=== PATIENT | male | born 1950 | race Caucasian/White ===

== ENCOUNTER 2018-10-02 04:07 | Emergency (ER) | payer MEDICARE ==
[2018-10-02] MEDS ORDERED: ALBUTEROL (0.5% CONCENTRATED) 2.5 MG/0.5 ML VIAL.NEB INH ONE ×2 (04:14→04:16)
[2018-10-02] MEDS ORDERED: IPRATROPIUM/ALBUTEROL (0.5MG/3MG) NEB INH ONE (04:18)
--- NOTE | 2018-10-02 04:23 | Emergency Department Record ---
History of Present Illness - General Chief complaint: ENT Stated complaint: OBJECT IN EAR Time Seen by Provider: 10/02/18 04:17 Source: Patient Mode of Arrival: Ambulatory Limitations: No limitations - History of Present Illness Initial comments: 68 yo male with a history of oxygen dependent COPD presents to ED for evaluation of a foreign body within the left ear. Patient reports the object is likely the plastic/rubber tip from a wax remover that has been in the canal for approximately 20 hours. Patient reports pain from the object being in the ear, also complains of mild SOB due to his COPD. Patient denies fevers, chills, or recent illness. MD complaint: Ear pain Onset/Timin -: Hour(s) Location: L ear Severity: Moderate Quality: Aching Consistency: Constant Improves with: None Worsens with: None - Related Data Home Medications Medication Instructions Recorded Confirmed Last Taken Albuterol Sulfate [Proventil Hfa] 1 - 2 puff INH .EVERY 4-6 HOURS PRN 10/02/18 10/02/18 Unknown Aspirin [Ecotrin] 81 mg PO DAILY 10/02/18 10/02/18 Unknown Budesonide/Formoterol Fumarate 2 puff IH BID 10/02/18 10/02/18 Unknown [Symbicort 80-4.5 Mcg Inhaler] Fenofibrate Nanocrystallized 48 mg PO DAILY 10/02/18 10/02/18 Unknown [Fenofibrate] Nutrit Supp/Inulin/Fos/Fiber 1,500 ml PO DAILY 10/02/18 10/02/18 Unknown [Fibersource Hn Liquid] Simvastatin 10 mg PO DAILY 10/02/18 10/02/18 Unknown Tiotropium Forbes [Spiriva] 18 mcg IH DAILY 10/02/18 10/02/18 Unknown Allergies Allergy/AdvReac Type Severity Reaction Status Date / Time No Known Drug Allergies Allergy Verified 10/02/18 04:40 Review of Systems Constitutional: Denies: Chills, Fever, Malaise, Night sweats Eyes: Denies: Eye discharge, Eye pain ENT: Reports: Ear pain. Denies: Congestion, Epistaxis Respiratory: Reports: Dyspnea, Wheezes. Denies: Cough Cardiovascular: Denies: Chest pain, Edema, Palpitations Endocrine: Denies: Fatigue, Heat or cold intolerance Gastrointestinal: Denies: Abdominal pain, Nausea, Vomiting Genitourinary: Denies: Incontinence, Retention Musculoskeletal: Denies: Arthralgia, Back pain, Gout, Joint swelling Skin: Denies: Bruising, Change in color Neurological: Denies: Abnormal gait, Confusion, Headache, Seizure Psychiatric: Denies: Anxiety Hematological/Lymphatic: Denies: Anemia, Blood Clots Physical Exam - General General Appearance: Alert, Oriented x3, Cooperative, Mild distress Limitations: No limitations - Head Head exam: Atraumatic, Normocephalic, Normal inspection Head exam detail: negative: Abrasion, Contusion, Owens's sign, General tenderness, Hematoma, Laceration - Eye Eye exam: Normal appearance. negative: Conjunctival injection, Periorbital swelling, Periorbital tenderness, Scleral icterus - ENT Ear exam: External canal tenderness, Other (FB present within the external auditory canal of the left ear). negative: Auricular hematoma, Auricular trauma Nasal Exam: negative: Active bleeding, Discharge, Dried blood, Foreign body Mouth exam: negative: Drooling, Laceration, Muffled voice, Tongue elevation - Neck Neck exam: Normal inspection. negative: Meningismus, Tenderness - Respiratory Respiratory exam: Decreased breath sounds, Wheezes. negative: Rales, Respiratory distress - Cardiovascular Cardiovascular Exam: Regular rate, Normal rhythm, Normal heart sounds - GI/Abdominal GI/Abdominal exam: Soft. negative: Rebound, Rigid, Tenderness - Rectal Rectal exam: Deferred - exam: Deferred - Extremities Extremities exam: Normal inspection. negative: Pedal edema, Tenderness - Back Back exam: Denies: CVA tenderness (R), CVA tenderness (L) - Neurological Neurological exam: Alert, Normal gait, Oriented X3 - Psychiatric Psychiatric exam: Normal affect, Normal mood - Skin Skin exam: Normal color. negative: Abrasion Type of lesion: negative: abrasion Course Vital Signs 10/02/18 04:14 Temperature 98.3 F Pulse Rate [ 104 H Pulse Ox Probe] Respiratory 32 H Rate Blood Pressure 185/92 [Left Arm] Pulse Ox 90 L - Reevaluation(s) Reevaluation #1: 10/02/18 04:22 Plastic ear wax tip was removed from the left ear canal, mile erythema/irritation to the canal is presents, TM intact. Reevaluation #2: 10/02/18 04:48 Patient was reassessed following Duoneb, BS significantly improved. Repeat VS: 158/76, 94% 2L, RR 16, pulse 91. Patient appears stable for discharge at this time. Procedures - Foreign Body Removal Ear Location: Ear canal (L) Foreign Body Suspected: Plastic bead/other plastic Foreign Body Removed: Yes Foreign Body Removal Technique: Forceps Tympanic Membrane Intact: Yes Patient Tolerated Procedure: Good Complications: None Disposition Disposition: Discharge Clinical Impression: Foreign body in ear Qualifiers: Encounter type: initial encounter Laterality: left Qualified Code(s): T16.2XXA - Foreign body in left ear, initial encounter COPD (chronic obstructive pulmonary disease) Qualifiers: COPD type: unspecified COPD Qualified Code(s): J44.9 - Chronic obstructive pulmonary disease, unspecified Disposition: Home, Self-Care Condition: (2) Stable Instructions: Ear Foreign Body (ED) Additional Instructions: Return to ED if your symptoms worsen or if you have any concerns. Follow-up with your family doctor in 3-5 days as directed. Forms: Patient Portal Access Time of Disposition: 04:24 Quality - Quality Measures Quality Measures: N/A - Blood Pressure Screening Does Patient Have Any of the Following: Active Dx of HTN Blood Pressure Classification: Hypertensive Reading Systolic Measurement: 185 Diastolic Measurement: 92 Screening for High Blood Pressure: Patient Exclusion, Hx of HTN [G9744]
== END 2018-10-02 04:52 | disposition home or self-care (01) ==
LOC: ER 04:07
DX: T16.2XXA Foreign body in left ear, initial encounter (principal); R06.02 Shortness of breath; J44.9 Chronic obstructive pulmonary disease, unspecified; I10 Essential (primary) hypertension; Z99.81 Dependence on supplemental oxygen
CPT/HCPCS: 69200; 94640; 99283

== ENCOUNTER 2019-04-07 08:54 | Emergency (ER) | payer MEDICARE ==
[2019-04-07] MEDS ORDERED: 0.9 % SODIUM CHLORIDE 1000ML 1,000 ML IV ONE (08:56)
[2019-04-07] MEDS ORDERED: IPRATROPIUM/ALBUTEROL (0.5MG/3MG) NEB INH ONE (08:57)
[2019-04-07] MEDS ORDERED: METHYLPREDNISOLONE PF 125MG/VIAL IVP ONE (08:57)
[2019-04-07 09:16] LABS: HEMATOCRIT 44.9 % (42.0-52.0); HEMOGLOBIN 13.9 gm/dl (14.0-18.0); MEAN CELL VOLUME 101.1 fl (81-97); MEAN CORPUSCULAR HEMOGLOBIN 31.3 pg (27-33); MEAN PLATELET VOLUME 9.4 fl (7.4-10.4); PLATELET COUNT 331 K/uL (130-400); RED BLOOD COUNT 4.44 M/uL (4.40-5.70); RED CELL DISTRIBUTION WIDTH 14.2 % (11.5-14.5); WHITE BLOOD COUNT W/O DIFF 7.6 K/uL (4.2-12.2)
[2019-04-07 09:28] LABS: BLOOD UREA NITROGEN 18 mg/dL (8-23); CREATININE 1.1 mg/dL (0.7-1.2); EST GLOMERULAR FILTRATION RATE > 60 mL/min
[2019-04-07 09:31] LABS: GLUCOSE,RANDOM 109 mg/dL (74-109)
--- NOTE | 2019-04-07 10:08 | RADIOLOGY REPORT ---
EXAMINATION: Two View Chest Radiographs EXAM DATE: 04/07/2019 9:56 AM TECHNIQUE: Frontal and lateral views INDICATION: Cough, shortness of breath COMPARISON: No relevant comparison studies ENCOUNTER: Not applicable FINDINGS: Stigmata of COPD without appreciable airspace opacities. No appreciable pneumothorax. No sizable pleural effusions. Cardiopericardial contour is not enlarged unremarkable. IMPRESSION: No acute cardiopulmonary abnormality to the limits of technique. Dictated by: Rae Rosas MD on 04/07/2019 10:03 AM. .
[2019-04-07 10:32] LABS: INFLUENZA A NEGATIVE (NEGATIVE); INFLUENZA B NEGATIVE (NEGATIVE)
--- NOTE | 2019-04-07 10:44 | Emergency Department Record ---
History of Present Illness - General Chief Complaint: Difficulty Breathing Stated Complaint: URMILA Time Seen by Provider: 04/07/19 08:55 Source: Patient, RN notes reviewed Mode of Arrival: Ambulatory - History of Present Illness Initial Comments: patient states he is SOB and coughing up sputum which started 4 days ago. PMH of copd and on home oxygen at 2 liters per min. No chest pain. Primary Dr is Dr Medrano patient states he has been using albuterol and symbicort at home. still smoking home made cigarretes Onset/Timin -: Days(s) Severity: Moderate Consistency: Getting worse Improves With: Bronchodilators Worsens With: Coughing, Exertion Known History Of: COPD Associated Symptoms: Cough Treatments Prior to Arrival: Bronchodilator, Oxygen - Related Data Home Oxygen Therapy: Yes Home Oxygen Amount: 2 Liters Home Medications Medication Instructions Recorded Confirmed Last Taken Amlodipine Besylate [Norvasc] 5 mg PO DAILY 04/07/19 04/07/19 04/06/19 Guaifenesin [Mucinex] 600 mg PO ASDIR 04/07/19 04/07/19 04/06/19 Vitamin B Complex 1 each PO DAILY 04/07/19 04/07/19 04/06/19 Previous Rx's Medication Instructions Recorded Azithromycin 250 mg PO DAILY #6 tablet 04/07/19 Prednisone [Prednisone 10Mg] 10 mg PO ASDIR #30 tab 04/07/19 Promethazine HCl/Codeine 10 ml PO Q4H PRN #300 ml 04/07/19 [Phenergan W/Codeine] Allergies Allergy/AdvReac Type Severity Reaction Status Date / Time niacin AdvReac FLUSHING Verified 04/07/19 08:59 Travel Screening - Travel/Exposure Within Last 30 Days Have you traveled within the last 30 days?: No - Travel/Exposure Within Last Year Have you traveled outside the [place] in the last year?: No - Additonal Travel Details Have you been exposed to anyone with a communicable illness?: No - Travel Symptoms Symptom Screening: None Review of Systems Reviewed: No additional complaints except as noted below Constitutional: Reports: As per HPI. Denies: Chills, Fever, Malaise, Night s weats, Weakness, Weight change Eyes: Reports: As per HPI. Denies: Eye discharge, Eye pain, Photophobia, Vision change ENT: Reports: As per HPI, Congestion. Denies: Dental pain, Ear pain, Epistaxis, Hearing loss, Throat pain Respiratory: Reports: As per HPI, Cough, Dyspnea, Wheezes. Denies: Hemoptysis, Stridor Cardiovascular: Reports: As per HPI. Denies: Arrhythmia, Chest pain, Dyspnea on exertion, Edema, Murmurs, Orthopnea, Palpitations, Paroxysmal nocturnal dyspnea, Rheumatic Fever, Syncope Endocrine: Reports: As per HPI. Denies: Fatigue, Heat or cold intolerance, Polydipsia, Polyuria Gastrointestinal: Reports: As per HPI. Denies: Abdominal pain, Constipation, Diarrhea, Hematemesis, Hematochezia, Melena, Nausea, Vomiting Genitourinary: Reports: As per HPI. Denies: Dysuria, Frequency, Hematuria, Incontinence, Retention, Testicular pain, Testicular mass, Urgency Musculoskeletal: Reports: As per HPI. Denies: Arthralgia, Back pain, Gout, Joint swelling, Myalgia, Neck pain Skin: Reports: As per HPI. Denies: Bruising, Change in color, Change in hair/nails, Lesions, Pruritus, Rash Neurological: Reports: As per HPI. Denies: Abnormal gait, Confusion, Headache, Numbness, Paresthesias, Seizure, Tingling, Tremors, Vertigo, Weakness Psychiatric: Reports: As per HPI. Denies: Anxiety, Auditory hallucinations, Depression, Homicidal thoughts, Suicidal thoughts, Visual hallucinations Hematological/Lymphatic: Reports: As per HPI. Denies: Anemia, Blood Clots, Easy bleeding, Easy bruising, Swollen glands Past Medical History - SOCIAL HISTORY Smoking Status: Former smoker Alcohol Use: Occasional Drug Use: None - RESPIRATORY Hx Respiratory Disorders: Yes Hx COPD: Yes - CARDIOVASCULAR Hx Cardio Disorders: No - NEURO Hx Neuro Disorders: No - GI Hx GI Disorders: Yes Hx of Polyps: Yes - Hx Genitourinary Disorders: No - ENDOCRINE Hx Endocrine Disorders: No - MUSCULOSKELETAL Hx Musculoskeletal Disorders: Yes - PSYCH Hx Psych Problems: No - HEMATOLOGY/ONCOLOGY Hx Hematology/Oncology Disorders: No Family Medical History Any Significant Family History?: No Family Hx Comment (NOT TO BE USED IN PLACE OF ITEMS BELOW): denies Physical Exam - General General Appearance: Alert, Oriented x3, Cooperative, No acute distress - Head Head exam: Normal inspection - Eye Eye exam: Normal appearance, PERRL Pupils: Normal accommodation - ENT ENT exam: Normal exam, Mucous membranes moist, Normal external ear exam, Normal orophraynx, TM's normal bilaterally Ear exam: Normal external inspection. negative: External canal tenderness Nasal Exam: Normal inspection. negative: Discharge, Sinus tenderness Mouth exam: Normal external inspection, Tongue normal Teeth exam: Normal inspection. negative: Dental caries Throat exam: Normal inspection. negative: Tonsillar erythema, Tonsillar exudate - Neck Neck exam: Normal inspection, Full ROM. negative: Tenderness - Respiratory Respiratory exam: Respiratory distress, Wheezes - Cardiovascular Cardiovascular Exam: Regular rate, Normal rhythm, Normal heart sounds - GI/Abdominal GI/Abdominal exam: Soft, Normal bowel sounds. negative: Tenderness - Rectal Rectal exam: Deferred - exam: Deferred - Extremities Extremities exam: Normal inspection, Full ROM, Normal capillary refill. negative: Tenderness - Back Back exam: Reports: Normal inspection, Full ROM. Denies: Muscle spasm, Rash noted, Tenderness - Neurological Neurological exam: Alert, Normal gait, Oriented X3, Reflexes normal - Psychiatric Psychiatric exam: Normal affect, Normal mood - Skin Skin exam: Dry, Intact, Normal color, Warm Course Vital Signs 04/07/19 04/07/19 09:06 09:10 Temperature 98.4 F Pulse Rate 89 87 Respiratory 20 16 Rate Blood Pressure 137/88 Pulse Ox 95 - Reevaluation(s) Reevaluation #1: discussed admission and outpatient and he wants to try outpatient treatment 04/07/19 11:28 Medical Decision Making - Data Complexity MDM Data: Labs Ordered and/or Reviewed, X-Ray Ordered and/or Reviewed (No acute findings), EKG Ordered and/or Reviewed (NSR, no acute changes) - Lab Data Result diagrams: 04/07/19 09:00 04/07/19 09:00 Lab Results 04/07/19 04/07/19 04/07/19 Range/Units 09:00 09:00 09:00 WBC 7.6 (4.2-12.2) K/uL RBC 4.44 (4.40-5.70) M/uL Hgb 13.9 L (14.0-18.0) gm/dl Hct 44.9 (42.0-52.0) % MCV 101.1 H (81-97) fl MCH 31.3 (27-33) pg MCHC 31.0 L (32-36) g/dl RDW 14.2 (11.5-14.5) % Plt Count 331 (130-400) K/uL MPV 9.4 (7.4-10.4) fl Neutrophils % 58.0 (47-80) % Eosinophils % Not Reportable Basophils % Not Reportable Absolute Neutrophils Not Reportable Lymphocytes 27.0 (16-45) % Monocytes 4.0 (0-9) % Eosinophil Count 11.0 H (0-6) % APTT 26.6 (24.5-39.1) SECONDS Sodium 143 (136-145) mmol/L Potassium 4.2 (3.4-4.5) mmol/L Chloride 100 (98-107) mmol/L Carbon Dioxide 32.0 H (22-29) mmol/L Anion Gap 11.0 (7-16) BUN 18 (8-23) mg/dL Creatinine 1.1 (0.7-1.2) mg/dL Estimated GFR > 60 mL/min Random Glucose 109 (74-109) mg/dL Calcium 10.3 H (8.8-10.2) mg/dL Troponin T < 0.010 (0-0.010) ng/mL Influenza Type A Ag (NEGATIVE) Influenza Type B Ag (NEGATIVE) 04/07/19 Range/Units 09:40 WBC (4.2-12.2) K/uL RBC (4.40-5.70) M/uL Hgb (14.0-18.0) gm/dl Hct (42.0-52.0) % MCV (81-97) fl MCH (27-33) pg MCHC (32-36) g/dl RDW (11.5-14.5) % Plt Count (130-400) K/uL MPV (7.4-10.4) fl Neutrophils % (47-80) % Eosinophils % Basophils % Absolute Neutrophils Lymphocytes (16-45) % Monocytes (0-9) % Eosinophil Count (0-6) % APTT (24.5-39.1) SECONDS Sodium (136-145) mmol/L Potassium (3.4-4.5) mmol/L Chloride (98-107) mmol/L Carbon Dioxide (22-29) mmol/L Anion Gap (7-16) BUN (8-23) mg/dL Creatinine (0.7-1.2) mg/dL Estimated GFR mL/min Random Glucose (74-109) mg/dL Calcium (8.8-10.2) mg/dL Troponin T (0-0.010) ng/mL Influenza Type A Ag Negative (NEGATIVE) Influenza Type B Ag Negative (NEGATIVE) Disposition Clinical Impression: COPD (chronic obstructive pulmonary disease) with acute bronchitis, On home O2 Disposition: Home, Self-Care Condition: (1) Good Instructions: COPD (Chronic Obstructive Pulmonary Disease) (ED), Acute Bronchitis (ED) Additional Instructions: follow up with Dr. Medrano in 2 to 5 days drink fluids phenergan with codiene cough syrup 10 ml ever 4 hours Prescriptions: Azithromycin 250 mg PO DAILY #6 tablet Promethazine HCl/Codeine [Phenergan W/Codeine] 10 ml PO Q4H PRN #300 ml PRN Reason: Cough Prednisone [Prednisone 10Mg] 10 mg PO ASDIR #30 tab Forms: Patient Portal Access Time of Disposition: 11:36 Quality - Quality Measures Quality Measures: N/A - Blood Pressure Screening Does Patient Have Any of the Following: No Blood Pressure Classification: Pre-Hypertensive BP Reading Systolic Measurement: 137 Diastolic Measurement: 88 Screening for High Blood Pressure: < Pre-Hypertensive BP, F/U Documented > [G8 950] Pre-Hypertensive Follow-up Interventions: Referral to alternative/primary care provider.
[2019-04-07] MEDS ORDERED: CEFTRIAXONE SODIUM 1 GM in 0.9 % SODIUM CHLORIDE 100ML 100 ML IVPB ONE (10:56)
[2019-04-07] MEDS ORDERED: AZITHROMYCIN 500 MG TABLET PO ONE (11:06)
[2019-04-08] MEDS ORDERED: AZITHROMYCIN 500 MG TABLET PO SCH (10:00)
== END 2019-04-07 12:03 | disposition home or self-care (01) ==
LOC: ER 08:54
DX: J44.1 Chronic obstructive pulmonary disease with (acute) exacerbation (principal); F17.210 Nicotine dependence, cigarettes, uncomplicated
CPT/HCPCS: 71046; 80048; 84484; 85027; 85730; 87400; 93005; 93010; 94640; 96365; 96375; 99284; J2930

== ENCOUNTER 2019-05-14 10:17 | Emergency (ER) | payer MEDICARE ==
[2019-05-14] MEDS ORDERED: METHYLPREDNISOLONE PF 125MG/VIAL IVP ONE (10:24)
[2019-05-14] MEDS ORDERED: IPRATROPIUM/ALBUTEROL (0.5MG/3MG) NEB INH ONE (10:24)
[2019-05-14 11:01] LABS: ABSOLUTE NEUTROPHIL COUNT 4.48; BASO % 0.6 % (0-6); EOS % 9.1 % (0-6); GRAN % 55.2 % (47-80); HEMATOCRIT 41.6 % (42.0-52.0); LYMPH % 25.1 % (16-45); MEAN CELL VOLUME 99.8 fl (81-97); MEAN CORPUSCULAR HGB CONC 31.3 g/dl (32-36); MEAN PLATELET VOLUME 9.8 fl (7.4-10.4); PLATELET COUNT 332 K/uL (130-400); RED BLOOD COUNT 4.17 M/uL (4.40-5.70); RED CELL DISTRIBUTION WIDTH 14.6 % (11.5-14.5); WHITE BLOOD COUNT W/O DIFF 8.1 K/uL (4.2-12.2)
[2019-05-14 11:02] LABS: MEAN CORPUSCULAR HEMOGLOBIN 31.1 pg (27-33)
--- NOTE | 2019-05-14 11:04 | Emergency Department Record ---
History of Present Illness - General Chief Complaint: Shortness of breath Stated Complaint: SHORT OF BREATH Time Seen by Provider: 05/14/19 10:21 Source: Patient Mode of Arrival: Ambulatory Limitations: No limitations - History of Present Illness Initial Comments: pt has had increasing sob over the last day. his oxygen sats were down to 84. he is on home O2 at 2 ltrs Complaint: Cough, Shortness of breath Onset/Timin -: Days(s) Consistency: Constant Improves With: Nothing Worsens With: Nothing Known History Of: COPD, Other Associated Symptoms: Cough Treatments Prior to Arrival: Bronchodilator, Oxygen - Related Data Home Oxygen Therapy: Yes Home Oxygen Amount: 2 Liters Home Medications Medication Instructions Recorded Confirmed Last Taken Albuterol Sulfate 2.5 mg IH TID 05/14/19 05/14/19 05/13/19 Cholecalciferol (Vitamin D3) 2,000 unit PO DAILY 05/14/19 05/14/19 05/13/19 [Vitamin D3] Montelukast Sodium [Singulair] 10 mg PO DAILY 05/14/19 05/14/19 05/13/19 Previous Rx's Medication Instructions Recorded Promethazine HCl/Codeine 10 ml PO Q4H PRN #300 ml 04/07/19 [Phenergan W/Codeine] Prednisone [Prednisone 20Mg] 20 mg PO Q12HR #8 tab 05/14/19 Allergies Allergy/AdvReac Type Severity Reaction Status Date / Time niacin AdvReac FLUSHING Verified 05/14/19 10:28 Travel Screening - Travel/Exposure Within Last 30 Days Have you traveled within the last 30 days?: No Review of Systems Reviewed: No additional complaints except as noted below Constitutional: Reports: As per HPI. Denies: Chills, Fever, Malaise, Night sweats, Weakness, Weight change Eyes: Reports: As per HPI. Denies: Eye discharge, Eye pain, Photophobia, Vision change ENT: Reports: As per HPI. Denies: Congestion, Dental pain, Ear pain, Epistaxis, Hearing loss, Throat pain Respiratory: Reports: As per HPI, Cough. Denies: Dyspnea, Hemoptysis, Stridor, Wheezes Cardiovascular: Reports: As per HPI. Denies: Arrhythmia, Chest pain, Dyspnea on exertion, Edema, Murmurs, Orthopnea, Palpitations, Paroxysmal nocturnal dyspnea, Rheumatic Fever, Syncope Endocrine: Reports: As per HPI. Denies: Fatigue, Heat or cold intolerance, Polydipsia, Polyuria Gastrointestinal: Reports: As per HPI. Denies: Abdominal pain, Constipation, Diarrhea, Hematemesis, Hematochezia, Melena, Nausea, Vomiting Genitourinary: Reports: As per HPI. Denies: Dysuria, Frequency, Hematuria, Incontinence, Retention, Testicular pain, Testicular mass, Urgency Musculoskeletal: Reports: As per HPI. Denies: Arthralgia, Back pain, Gout, Joint swelling, Myalgia, Neck pain Skin: Reports: As per HPI. Denies: Bruising, Change in color, Change in hair/nails, Lesions, Pruritus, Rash Neurological: Reports: As per HPI. Denies: Abnormal gait, Confusion, Headache, Numbness, Paresthesias, Seizure, Tingling, Tremors, Vertigo, Weakness Psychiatric: Reports: As per HPI. Denies: Anxiety, Auditory hallucinations, Depression, Homicidal thoughts, Suicidal thoughts, Visual hallucinations Hematological/Lymphatic: Reports: As per HPI. Denies: Anemia, Blood Clots, Easy bleeding, Easy bruising, Swollen glands Past Medical History - SOCIAL HISTORY Smoking Status: Former smoker Alcohol Use: None Drug Use: None - RESPIRATORY Hx Respiratory Disorders: Yes Hx COPD: Yes Comment:: emphysema - CARDIOVASCULAR Hx Cardio Disorders: Yes Comment:: aortic aneurysm - NEURO Hx Neuro Disorders: No - GI Hx GI Disorders: Yes Hx of Polyps: Yes - Hx Genitourinary Disorders: No - ENDOCRINE Hx Endocrine Disorders: No - MUSCULOSKELETAL Hx Musculoskeletal Disorders: Yes - PSYCH Hx Psych Problems: No - HEMATOLOGY/ONCOLOGY Hx Hematology/Oncology Disorders: No Family Medical History Any Significant Family History?: No Family Hx Comment (NOT TO BE USED IN PLACE OF ITEMS BELOW): denies Physical Exam - General General Appearance: Alert, Oriented x3, Cooperative, Mild distress - Head Head exam: Normal inspection - Eye Eye exam: Normal appearance, PERRL, EOMI Pupils: Normal accommodation - ENT ENT exam: Normal exam, Mucous membranes moist, Normal external ear exam, Normal orophraynx Ear exam: Normal external inspection. negative: External canal tenderness Nasal Exam: Normal inspection. negative: Discharge, Sinus tenderness Mouth exam: Normal external inspection, Tongue normal Teeth exam: Normal inspection. negative: Dental caries Throat exam: Normal inspection. negative: Tonsillar erythema, Tonsillar exudate - Neck Neck exam: Normal inspection, Full ROM. negative: Tenderness - Respiratory Respiratory exam: Accessory muscle use, Decreased breath sounds, Respiratory distress, Wheezes - Cardiovascular Cardiovascular Exam: Regular rate, Normal rhythm, Normal heart sounds - GI/Abdominal GI/Abdominal exam: Soft, Normal bowel sounds. negative: Tenderness - Rectal Rectal exam: Deferred - exam: Deferred - Extremities Extremities exam: Normal inspection, Full ROM, Normal capillary refill. negative: Tenderness - Back Back exam: Reports: Normal inspection, Full ROM. Denies: Muscle spasm, Rash noted, Tenderness - Neurological Neurological exam: Alert, CN II-XII intact, Normal gait, Oriented X3 - Psychiatric Psychiatric exam: Normal affect, Normal mood - Skin Skin exam: Dry, Intact, Normal color, Warm Course Vital Signs 05/14/19 05/14/19 05/14/19 10:20 10:26 10:29 Temperature 98.8 F Pulse Rate 100 H 95 H Respiratory 22 18 Rate Blood Pressure 136/88 Pulse Ox 84 L 97 98 - Reevaluation(s) Reevaluation #1: 05/14/19 12:26 pt feels better Medical Decision Making - Lab Data Result diagrams: 05/14/19 10:25 05/14/19 10:25 Disposition Disposition: Discharge Clinical Impression: COPD with acute exacerbation Disposition: Home, Self-Care Condition: (1) Good Instructions: COPD (Chronic Obstructive Pulmonary Disease) (ED) Additional Instructions: followup with family doctor this week. return sooner if worse. Prescriptions: Prednisone [Prednisone 20Mg] 20 mg PO Q12HR #8 tab Forms: Patient Portal Access Quality - Quality Measures Quality Measures: N/A - Blood Pressure Screening Does Patient Have Any of the Following: No Blood Pressure Classification: Pre-Hypertensive BP Reading Systolic Measurement: 136 Diastolic Measurement: 88 Screening for High Blood Pressure: < Pre-Hypertensive BP, F/U Documented > [G8950] Pre-Hypertensive Follow-up Interventions: Follow-up with rescreen every year.
[2019-05-14 11:10] LABS: BLOOD UREA NITROGEN 17 mg/dL (8-23); CREATININE 1.2 mg/dL (0.7-1.2); EST GLOMERULAR FILTRATION RATE > 60 mL/min
[2019-05-14 11:12] LABS: GLUCOSE,RANDOM 104 mg/dL (74-109)
--- NOTE | 2019-05-14 12:13 | RADIOLOGY REPORT ---
EXAMINATION: Two View Chest Radiographs EXAM DATE: 05/14/2019 11:30 AM TECHNIQUE: Frontal and lateral views INDICATION: sob COMPARISON: 04/07/2019 ENCOUNTER: Not applicable FINDINGS: Hyperinflation Peripheral left midlung scar No pneumothorax or pleural effusion demonstrated Normal heart size and pulmonary vascularity IMPRESSION: COPD, no acute infiltrate demonstrated Dictated by: Solomon Celeste MD on 05/14/2019 12:11 PM. .
[2019-05-14] MEDS ORDERED: ALBUTEROL SULFATE (0.083%) 2.5 MG/3 ML NEB INH ONE (12:27)
== END 2019-05-14 12:57 | disposition home or self-care (01) ==
LOC: ER 10:17
DX: J44.1 Chronic obstructive pulmonary disease with (acute) exacerbation (principal); Z87.891 Personal history of nicotine dependence; Z99.81 Dependence on supplemental oxygen
CPT/HCPCS: 71046; 80048; 85025; 94640; 96374; 99284; J2930; J7613

== ENCOUNTER 2019-07-02 05:40 | Emergency (ER) | payer MEDICARE ==
[2019-07-02] MEDS ORDERED: ASPIRIN 81 MG CHEWABLE TABLET PO ONE (05:41)
[2019-07-02] MEDS ORDERED: IPRATROPIUM/ALBUTEROL (0.5MG/3MG) NEB INH ONE (05:41)
[2019-07-02] MEDS ORDERED: METHYLPREDNISOLONE PF 125MG/VIAL IVP ONE (05:41)
--- NOTE | 2019-07-02 05:46 | Emergency Department Record ---
History of Present Illness - General Chief Complaint: Shortness of breath Stated Complaint: URMILA Time Seen by Provider: 07/02/19 05:41 Source: Patient Mode of Arrival: Wheelchair Limitations: No limitations - History of Present Illness Initial Comments: 69 yo male presents to ED for evaluation of shortness of breath symptoms that began yesterday. Patient reports a history of oxygen-dependent COPD at 2 L NC at his baseline. Patient also reports mild-moderate left-sided chest pain symptoms. Patient denies fevers, chills, or productive cough symptoms. MD Complaint: Shortness of breath Onset/Timin -: Hour(s) Severity: Moderate Consistency: Constant Improves With: Nothing Worsens With: Nothing Known History Of: COPD Associated Symptoms: Chest pain Treatments Prior to Arrival: Bronchodilator - Related Data Home Oxygen Therapy: Yes Home Oxygen Amount: 2 Liters Previous Rx's Medication Instructions Recorded Prednisone [Prednisone 20Mg] 20 mg PO Q12HR #8 tab 05/14/19 Prednisone [Prednisone 20Mg] 20 mg PO TID #12 tab 07/02/19 Allergies Allergy/AdvReac Type Severity Reaction Status Date / Time niacin AdvReac FLUSHING Verified 07/02/19 05:42 Travel/Exposure Screening - Travel/Exposure Within Last 30 Days Have you traveled within the last 30 days?: No - Travel/Exposure Within Last Year Have you traveled outside the [place] in the last year?: No - Additonal Travel/Exposure Details Have you been exposed to anyone with a communicable illness?: No - Travel Symptoms Symptom Screening: None Review of Systems Constitutional: Denies: Chills, Fever, Malaise, Night sweats Eyes: Denies: Eye discharge, Eye pain ENT: Denies: Congestion, Ear pain, Epistaxis Respiratory: Reports: Dyspnea, Wheezes. Denies: Cough Cardiovascular: Reports: Chest pain. Denies: Edema Endocrine: Denies: Fatigue, Heat or cold intolerance Gastrointestinal: Denies: Abdominal pain, Nausea, Vomiting Genitourinary: Denies: Incontinence, Retention Musculoskeletal: Denies: Arthralgia, Back pain Skin: Denies: Bruising, Change in color Neurological: Denies: Abnormal gait, Confusion, Headache, Tingling, Tremors Psychiatric: Denies: Anxiety Hematological/Lymphatic: Denies: Anemia, Blood Clots Past Medical History - SOCIAL HISTORY Smoking Status: Former smoker Drug Use: None - RESPIRATORY Hx Respiratory Disorders: Yes Hx COPD: Yes Comment:: emphysema - CARDIOVASCULAR Hx Cardio Disorders: Yes Comment:: aortic aneurysm - NEURO Hx Neuro Disorders: No - GI Hx GI Disorders: Yes Hx of Polyps: Yes - Hx Genitourinary Disorders: No - ENDOCRINE Hx Endocrine Disorders: No - MUSCULOSKELETAL Hx Musculoskeletal Disorders: Yes - PSYCH Hx Psych Problems: No - HEMATOLOGY/ONCOLOGY Hx Hematology/Oncology Disorders: No Family Medical History Family Hx Comment (NOT TO BE USED IN PLACE OF ITEMS BELOW): denies Physical Exam - General General Appearance: Alert, Oriented x3, Cooperative, Moderate distress Limitations: No limitations - Head Head exam: Atraumatic, Normocephalic, Normal inspection Head exam detail: negative: Abrasion, Contusion, Owens's sign, General tenderness, Hematoma, Laceration - Eye Eye exam: Normal appearance. negative: Conjunctival injection, Periorbital swelling, Periorbital tenderness, Scleral icterus - ENT Ear exam: negative: Auricular hematoma, Auricular trauma Nasal Exam: negative: Active bleeding, Discharge, Dried blood, Foreign body Mouth exam: negative: Drooling, Laceration, Muffled voice, Tongue elevation - Neck Neck exam: Normal inspection. negative: Meningismus, Tenderness - Respiratory Respiratory exam: Decreased breath sounds, Prolonged expiratory, Respiratory distress. negative: Rhonchi, Stridor, Wheezes - Cardiovascular Cardiovascular Exam: Regular rate, Normal rhythm, Normal heart sounds - GI/Abdominal GI/Abdominal exam: Soft. negative: Distended, Rebound, Rigid, Tenderness - Rectal Rectal exam: Deferred - exam: Deferred - Extremities Extremities exam: Normal inspection. negative: Pedal edema, Tenderness - Back Back exam: Denies: CVA tenderness (R), CVA tenderness (L) - Neurological Neurological exam: Alert, Oriented X3 - Psychiatric Psychiatric exam: Normal affect, Normal mood - Skin Skin exam: Normal color. negative: Abrasion Type of lesion: negative: abrasion Course - Reevaluation(s) Reevaluation #1: 07/02/19 05:51 EKG: Sinus tachycardia 102 Normal axis, normal intervals No acute ST-T wave changes Reevaluation #2: 07/02/19 06:51 Laboratory studies were reviewed and appear grossly unremarkable for an acute process. Patient was reassessed and reports that he is feeling much improved. CXR pending at this time. Reevaluation #3: 07/02/19 07:25 CXR: COPD No acute process Patient updated on all results, reports that he is feeling much improved. Discussed admission for observation and further assessment for his chest disc omfort/COPD, patient is declining further evaluation stating that he is feeling much improved and "has to go as I have things to do today". Following discussion with the patient regarding admission, patient reports that they want to leave AMA at this time. Risks of , permanent impairment, or w orsening of his current condition were discussed as well as the benefit of admission for further cardiac evaluation of his presenting symptoms. Patient verbalizes understanding of all risks and benefits, desires to leave AMA despite these risks. Based on my examination, the patient is alert, oriented, and answers all questions appropriately. Patient appears to have the capacity to make rational decisions based on my examination. Patient was encouraged to return to the ED immediately if they change their mind about treatment and want to be re-evaluated. Medical Decision Making - Lab Data Result diagrams: 07/02/19 05:40 07/02/19 05:40 Disposition Disposition: Discharge Clinical Impression: COPD with acute exacerbation Disposition: Against Medical Advice Decision to Admit: Admit from ER Condition: (2) Stable Instructions: COPD (Chronic Obstructive Pulmonary Disease) (ED) Additional Instructions: Return to ED if your symptoms worsen or if you have any concerns. Prednisone as directed. Follow-up with your family doctor in 1-3 days as directed. Prescriptions: Prednisone [Prednisone 20Mg] 20 mg PO TID #12 tab Forms: Patient Portal Access Time of Disposition: 07:32 Quality - Quality Measures Quality Measures: N/A - Blood Pressure Screening Does Patient Have Any of the Following: No Blood Pressure Classification: Pre-Hypertensive BP Reading Systolic Measurement: 154 Diastolic Measurement: 82 Screening for High Blood Pressure: < Pre-Hypertensive BP, F/U Documented > [G8950] Pre-Hypertensive Follow-up Interventions: Referral to alternative/primary care provider.
[2019-07-02 06:10] LABS: BLOOD UREA NITROGEN 19 mg/dL (8-23); CREATININE 1.2 mg/dL (0.7-1.2); EST GLOMERULAR FILTRATION RATE > 60 mL/min
[2019-07-02 06:11] LABS: TOTAL PROTEIN 7.5 g/dL (6.6-8.7)
[2019-07-02 06:13] LABS: GLUCOSE,RANDOM 103 mg/dL (74-109)
[2019-07-02 06:14] LABS: ABSOLUTE NEUTROPHIL COUNT 7.56; HEMATOCRIT 43.3 % (42.0-52.0); HEMOGLOBIN 13.5 gm/dl (14.0-18.0); MEAN CELL VOLUME 101.9 fl (81-97); MEAN CORPUSCULAR HGB CONC 31.2 g/dl (32-36); MEAN PLATELET VOLUME 9.4 fl (7.4-10.4); PLATELET COUNT 297 K/uL (130-400); RED BLOOD COUNT 4.25 M/uL (4.40-5.70); RED CELL DISTRIBUTION WIDTH 15.5 % (11.5-14.5); WHITE BLOOD COUNT W/O DIFF 10.5 K/uL (4.2-12.2)
[2019-07-02 06:15] LABS: ALT/SGPT 15 U/L (<41); AST/SGOT 17 U/L (10.0-50.0)
[2019-07-02 06:16] LABS: ALB/GLOB RATIO 1.7 (1.1-1.8); ALBUMIN 4.7 g/dL (4.0-5.0); ALKALINE PHOSPHATASE 59 U/L (40-129)
[2019-07-02 06:24] LABS: MEAN CORPUSCULAR HEMOGLOBIN 31.7 pg (27-33)
[2019-07-02 06:40] LABS: BASO % 0.4 % (0-6); EOS % 1.5 % (0-6); GRAN % 72.1 % (47-80); LYMPH % 18.9 % (16-45); MONO % 7.1 % (0-9)
[2019-07-02 06:41] LABS: ANISOCYTOSIS 1+; PLATELET ESTIMATE NORMAL (NORMAL)
--- NOTE | 2019-07-02 07:11 | RADIOLOGY REPORT ---
EXAMINATION: Two View Chest Radiographs EXAM DATE: 07/02/2019 7:07 AM TECHNIQUE: Frontal and lateral views INDICATION: URMILA COMPARISON: Chest radiograph 05/14/2019 ENCOUNTER: Not applicable FINDINGS: The heart, mediastinum, and pulmonary vasculature are within normal limits. The lung is hyperinflated . There is flattening of the hemidiaphragms confirmed on the lateral projection. No lung consolidati on or pleural effusions are present. No pneumothorax. Osseous structures and soft tissue are unremark able. IMPRESSION: 1. No acute cardiopulmonary disease is present. 2. COPD/emphysema. Dictated by: Kadeem Dhaliwal DO on 07/02/2019 7:09 AM. .
== END 2019-07-02 07:51 | disposition left against medical advice (07) ==
LOC: ER 05:40
DX: J44.1 Chronic obstructive pulmonary disease with (acute) exacerbation (principal); R00.0 Tachycardia, unspecified; Z99.81 Dependence on supplemental oxygen; Z87.891 Personal history of nicotine dependence
CPT/HCPCS: 71046; 80053; 84484; 85027; 93005; 93010; 94640; 96374; 99284; J2930